=== PATIENT | female | born 1975 | race Caucasian/White ===

== ENCOUNTER 2018-03-08 15:14 | Emergency (ER) | payer SELFPAY, BC, OTHER ==
[2018-03-08 16:42] LABS: BASO % 0.3 % (0.0-1.0); EOS # 0.1 10^3/uL (0.0-0.50); EOS % 1.2 % (0.0-3.0); HEMATOCRIT 37.3 % (36.0-47.0); HEMOGLOBIN 12.7 g/dl (12.0-15.5); IMMATURE GRANULOCYTE % 0.2 % (0-3.0); LYMPH # 2.5 10^3/uL (1.5-4.5); MEAN CORPUSCULAR HEMOGLOBIN 30.6 pg (27.0-33.0); MEAN CORPUSCULAR VOLUME 89.9 fl (80.0-96.0); MONO # 0.6 10^3/uL (0.0-0.8); MONO % 7.4 % (0.0-5.0); NEUTROPHILS # 5.4 10^3/uL (1.8-7.7); NEUTROPHILS % 61.9 % (36.0-66.0); PLATELET COUNT, AUTOMATED 355 10^3/uL (150-450); RED BLOOD COUNT 4.15 10^6/uL (4.00-5.40); RED CELL DISTRIBUTION WIDTH 12.1 % (11.5-14.5); WHITE BLOOD COUNT 8.7 10^3/uL (4.0-10.0)
[2018-03-08] MEDS: LABETALOL HCL 100 MG/20 ML VIAL IV (16:52)
[2018-03-08 17:04] LABS: CONTROL LINE HCG INT CTR LINE PRESENT; HCG, SERUM QUALITATIVE NEGATIVE (NEGATIVE)
[2018-03-08 17:45] LABS: ALT/SGPT 58 U/L (12-78); ANION GAP 11 MEQ/L (8-16); AST/SGOT 29 U/L (7-37); BLOOD UREA NITROGEN 13 MG/DL (7-18); CALCIUM LEVEL 8.8 MG/DL (8.5-10.1); CARBON DIOXIDE LEVEL 25 MEQ/L (21-32); CHLORIDE LEVEL 104 MEQ/L (98-107); CREATININE FOR GFR 0.58 MG/DL (0.55-1.30); GLOMERULAR FILTRATION RATE > 60.0 (>58); GLUCOSE, FASTING 139 MG/DL (70-100); POTASSIUM SERUM 3.6 MEQ/L (3.5-5.1); SODIUM LEVEL 140 MEQ/L (136-145)
[2018-03-08 17:46] LABS: ALBUMIN 3.8 GM/DL (3.2-5.2); ALBUMIN/GLOBULIN RATIO 1.06 (1.00-1.93); ALKALINE PHOSPHATASE 67 U/L (45-117); BILIRUBIN,DIRECT < 0.1 MG/DL (0.0-0.2); BILIRUBIN,TOTAL 0.3 MG/DL (0.2-1.0); CK-MB VALUE MASS < 1.0 NG/ML (<3.6); CPK CREATINE PHOSPHOKINASE 88 U/L (26-192); TOTAL PROTEIN 7.4 GM/DL (6.4-8.2); TROPONIN I < 0.02 NG/ML (< 0.10)
[2018-03-08] MEDS: ACETAMINOPHEN TAB 650MG DOSE (2X325MG) PO (18:30)
[2018-03-08] MEDS: LOSARTAN 50 MG TAB PO (19:00)
[2018-03-08] MEDS: amLODIPine 5 MG TAB PO (19:01)
[2018-03-08 20:42] LABS: MB/CK RELATIVE INDEX 1.14 (< OR =4)
== END 2018-03-08 19:58 | disposition home or self-care (01) ==
LOC: M ED 15:14
DX: I10 Essential (primary) hypertension (principal); A08.4 Viral intestinal infection, unspecified
CPT/HCPCS: 71045

== ENCOUNTER 2020-04-24 09:36 | Emergency (ER) | payer OTHER ==
[~2020-04-24] VITALS: Ht 154.9 cm; Wt 108.8 kg
[~2020-04-24 09:36] MED LIST: AMLO1TAB24; FURO20TA2; LOSA100T50; METO1TAB7; ONDA4TAB6 PO; SPIR100T3
[2020-04-24] MEDS ORDERED: ATOR40TA75 (09:47)
[2020-04-24] MEDS: NITROGLYCERIN 0.4 MG SUBL TABLET SL PRN ×3 (10:28→10:46)
[2020-04-24] MEDS ORDERED: ASPIRIN 81 MG CHEW TABLET PO ONE (10:30)
[2020-04-24 10:34] LABS: INR 0.9; PROTHROMBIN TIME 12.3 SECONDS (12.5-14.3)
[2020-04-24 10:37] LABS: BASO # 0.1 10^3/uL (0.0-0.2); BASO % 0.7 % (0.0-1.0); EOS # 0.2 10^3/uL (0.0-0.5); EOS % 3.2 % (0.0-3.0); HEMATOCRIT 41.3 % (36.0-47.0); HEMOGLOBIN 13.1 g/dl (12.0-15.5); LYMPH # 2.2 10^3/uL (1.5-5.0); LYMPH % 32.3 % (24.0-44.0); MEAN CORPUSCULAR HGB CONC 31.7 g/dl (32.0-36.5); MEAN CORPUSCULAR VOLUME 94.5 fl (80.0-96.0); MONO # 0.6 10^3/uL (0.0-0.8); MONO % 8.1 % (0.0-5.0); NEUTROPHILS # 3.9 10^3/uL (1.5-8.5); NEUTROPHILS % 55.4 % (36.0-66.0); PLATELET COUNT, AUTOMATED 351 10^3/uL (150-450); RED BLOOD COUNT 4.37 10^6/uL (4.00-5.40); WHITE BLOOD COUNT 6.9 10^3/uL (4.0-10.0)
--- NOTE | 2020-04-24 10:37 | REP ---
INDICATION: CHEST PAIN. COMPARISON: Portable chest dated 03/08/2018. TECHNIQUE: Single AP view of the chest performed portably with the patient upright. FINDINGS: The lung rutledge are clear. Cardiac size is normal. The kishan, mediastinum and skeletal structures are unremarkable. IMPRESSION: Essentially negative portable chest There is no interval change. <Electronically signed by Viktor Tran > 04/24/20 [id number]
[2020-04-24 10:50] LABS: ALBUMIN 3.7 GM/DL (3.2-5.2); ALT/SGPT 35 U/L (12-78); BILIRUBIN,DIRECT < 0.1 MG/DL (0.0-0.2); BILIRUBIN,TOTAL 0.3 MG/DL (0.2-1.0); BLOOD UREA NITROGEN 16 MG/DL (7-18); CALCIUM LEVEL 8.8 MG/DL (8.5-10.1); CARBON DIOXIDE LEVEL 28 MEQ/L (21-32); CHLORIDE LEVEL 104 MEQ/L (98-107); CK-MB VALUE MASS < 1.0 NG/ML (<3.6); CPK CREATINE PHOSPHOKINASE 72 U/L (26-192); CREATININE FOR GFR 0.62 MG/DL (0.55-1.30); GLOMERULAR FILTRATION RATE > 60.0 (>58); GLUCOSE, FASTING 113 MG/DL (70-100); LIPASE 99 U/L (73-393); MB/CK RELATIVE INDEX 1.39 (< OR =4); NT-PRO BNP 68 PG/ML (<125); SODIUM LEVEL 136 MEQ/L (136-145); TOTAL PROTEIN 7.4 GM/DL (6.4-8.2); TROPONIN I < 0.02 NG/ML (< 0.10)
[2020-04-24] MEDS ORDERED: ACETAMINOPHEN 500 MG TAB PO ONE (11:00)
[2020-04-24] MEDS ORDERED: ISOVUE-370 76% 100ML VIAL As Ordered ONE (12:49)
--- NOTE | 2020-04-24 13:28 | REP ---
INDICATION: CP. COMPARISON: None. TECHNIQUE: Contrast dose: 75 ML of Isovue [address] technique: Helical scanning is acquired and overlapping 1.5 mm and contiguous 3 mm axial images are reformatted. In addition, maximum intensity projection and multiplanar re-formation images are generated in sagittal and coronal imaging projections. FINDINGS: There is good opacification in the pulmonary arterial tree. There is no evidence of vessel cut off or filling defect to suggest pulmonary embolus. Homogeneous opacity is seen in the thoracic aorta. There is no evidence of aneurysm or dissection. Lung window settings demonstrate no evidence9 of infiltrate, atelectasis, or significant pulmonary nodule. There is no evidence of pleural or pericardial effusion. No hilar or mediastinal mass or adenopathy is observed. Incidental note is made of a normal variant in the great vessels in that the left vertebral artery is seen to take direct origin from the aortic arch. In the upper abdomen, moderate diffuse fatty infiltration of the liver is noted. There is a small accessory splenule in the left upper quadrant. Normal adrenal glands. The visualized upper abdominal structures are otherwise unremarkable. Bone window settings show no bony destructive lesion.. IMPRESSION: No CT evidence of pulmonary embolus. Moderate diffuse fatty infiltration of the liver. Otherwise negative. <Electronically signed by Herve Melara > 04/24/20 [id number]
--- NOTE | 2020-04-24 15:31 | REP ---
INDICATION: swelling. COMPARISON: NONE. TECHNIQUE: Helical scanning is acquired and 2 mm axial images re-formatted. Coronal MPR images are generated and reviewed. FINDINGS: No intraorbital abnormality is seen. The visualized intracranial structures are unremarkable. No mandibular fracture or bony destructive lesion is seen. No condylar neck fracture is seen. No skull base or upper cervical spine abnormality is observed. There is leftward deviation of the nasal septum with a large septal beak. 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 The lateral wall of the nasal airway on the left bows laterally into the opacified left maxillary sinus. There is some chronic of maxillary sinus wall thickening on the left and these changes are compatible with chronic left maxillary sinusitis. There are mucous retention cysts in the ethmoid air cells bilaterally, 2 on the right and 1 on the left. There is a mucous retention cyst in the right sphenoid sinus measuring 18 mm. No nasal polyp is appreciated. Orbital margins are intact. The right ostiomeatal complex is patent. Nasal ethmoid recesses are patent. The left OMC is obscured by mucosal thickening and the lateral bowing of the nasal cavity wall. IMPRESSION: Leftward deviation of the nasal septum with a fairly large septal beak. Chronic sinusitis left maxillary sinus and mucosal retention cysts in the ethmoids and right sphenoid sinus. No traumatic abnormality noted. Otherwise negative. <Electronically signed by Herve Melara > 04/24/20 [id number]
[2020-04-24] MEDS ORDERED: CHLO125TA PO (16:01)
[2020-04-24] MEDS ORDERED: CHLORTHALIDONE 12.5MG PER 1/2 TABLET PO ONE (16:15)
[2020-04-24] MEDS ORDERED: amLODIPine 5 MG TAB PO ONE (16:15)
[2020-04-24 16:18] VITALS: BP 203/93
[2020-04-24] MEDS: PERCOCET 5MG/325MG TAB PO ONE ×2 (16:18→16:22)
[2020-04-24] MEDS ORDERED: KETOROLAC 30 MG/ML 1ML VIAL IV ONE (16:30)
[2020-04-24 17:42] LABS: CK-MB VALUE MASS < 1.0 NG/ML (<3.6); CPK CREATINE PHOSPHOKINASE 58 U/L (26-192); MB/CK RELATIVE INDEX 1.72 (< OR =4); TROPONIN I < 0.02 NG/ML (< 0.10)
[2020-04-24] MEDS ORDERED: AUGM875T28 PO (17:52)
[2020-04-24 18:10] VITALS: BP 177/100
--- NOTE | 2020-04-24 20:57 | ECGEPIP ---
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
--- NOTE | 2020-04-24 21:00 | ECGEPIP ---
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
== END 2020-04-24 18:18 | disposition home or self-care (01) ==
LOC: M ED 09:36
DX: I10 Essential (primary) hypertension (principal); R07.89 Other chest pain; J32.9 Chronic sinusitis, unspecified; J34.1 Cyst and mucocele of nose and nasal sinus; K76.0 Fatty (change of) liver, not elsewhere classified; R22.0 Localized swelling, mass and lump, head; R20.2 Paresthesia of skin; Z82.49 Family history of ischemic heart disease and other diseases of the circulatory system; Z91.018 Allergy to other foods; Z79.899 Other long term (current) drug therapy
CPT/HCPCS: 36415; 70486; 71045; 71275; 80048; 80076; 82550; 82553; 83690; 83880; 84443; 84484; 85025; 85610; 93005; 93041; 94760; 96374; 99285; J1885; Q9967

== ENCOUNTER → 2020-07-12 | Outpatient (REF) ==
[~2020-07-12] MED LIST changes: +ATOR40TA75; +AUGM875T28 PO; +CHLO125TA PO
== END ==
LOC: M LABSMTC 13:50
PROVIDERS: ATTEND Pediatrics
DX: Z11.52 Encounter for screening for COVID-19 (principal)

== ENCOUNTER 2021-02-10 15:38 | Emergency (ER) | payer OTHER ==
[~2021-02-10] VITALS: Ht 154.9 cm; Wt 104.1 kg
[2021-02-10 15:38] VITALS: BP 184/91
--- NOTE | 2021-02-11 05:01 | ECGEPIP ---
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
== END 2021-02-10 19:46 | disposition left against medical advice (07) ==
LOC: M ED 15:38
DX: Z53.21 Procedure and treatment not carried out due to patient leaving prior to being seen by health care provider (principal)

== ENCOUNTER → 2021-11-09 | Outpatient (REF) ==
[~2021-11-09] MED LIST changes: +LOSA100T45; -LOSA100T50
== END ==
LOC: M LABSMTC 10:04
PROVIDERS: ATTEND Family Medicine
DX: Z11.52 Encounter for screening for COVID-19 (principal)

== ENCOUNTER → 2022-01-27 | Outpatient (REF) | LOC: M EMP 15:34 | PROVIDERS: ATTEND Family Medicine | DX: Z11.52 Encounter for screening for COVID-19 (principal) ==

== ENCOUNTER → 2022-07-27 | Outpatient (REF) ==
[2022-07-27 14:59] LABS: RSV AMPLIFICATION NEGATIVE (NEGATIVE)
== END ==
LOC: M EMP 12:34
PROVIDERS: ATTEND Family Medicine
DX: Z11.52 Encounter for screening for COVID-19 (principal)

== ENCOUNTER 2022-08-17 08:22 | Observation (INO) | payer BC, OTHER ==
[~2022-08-17] VITALS: Ht 154.9 cm; Wt 109.2 kg
[2022-08-17] VITALS (7 sets, daily range): BP systolic 107–178; BP diastolic 56–120
[~2022-08-17 08:22] MED LIST changes: -AMLO1TAB24; +AMLO1TAB24 PO; -LOSA100T45; +LOSA100T45 PO; -METO1TAB7; +METO1TAB7 PO; -SPIR100T3; +SPIR100T3 PO
[2022-08-17] MEDS ORDERED: ISOVUE-370 76% 100ML VIAL As Ordered ONE (08:43)
[2022-08-17] MEDS ORDERED: SPIRONOLACTONE 50 MG TAB PO SCH (09:00)
[2022-08-17 09:03] LABS: BASO % 0.5 % (0.0-1.0); EOS # 0.1 10^3/uL (0.0-0.5); EOS % 1.8 % (0.0-3.0); HEMATOCRIT 42.8 % (36.0-47.0); HEMOGLOBIN 14.3 g/dl (12.0-15.5); LYMPH # 2.6 10^3/uL (1.5-5.0); LYMPH % 33.3 % (24.0-44.0); MEAN CORPUSCULAR HEMOGLOBIN 30.4 pg (27.0-33.0); MEAN CORPUSCULAR HGB CONC 33.4 g/dl (32.0-36.5); MEAN CORPUSCULAR VOLUME 91.1 fl (80.0-96.0); MONO # 0.6 10^3/uL (0.0-0.8); MONO % 7.7 % (2.0-8.0); NEUTROPHILS # 4.3 10^3/uL (1.5-8.5); NEUTROPHILS % 56.4 % (36.0-66.0); PLATELET COUNT, AUTOMATED 390 10^3/uL (150-450); WHITE BLOOD COUNT 7.7 10^3/uL (4.0-10.0)
[2022-08-17 09:26] LABS: INR 0.91; PROTHROMBIN TIME 12.4 SECONDS (12.5-14.5)
[2022-08-17 09:27] LABS: PARTIAL THROMBOPLASTIN TIME 25.2 SECONDS (24.8-34.2)
[2022-08-17 09:29] LABS: CK-MB VALUE MASS < 1.0 NG/ML (<3.6); CPK CREATINE PHOSPHOKINASE 55 U/L (34-145); MB/CK RELATIVE INDEX 1.81 (< OR =4)
[2022-08-17 09:35] LABS: HCG, SERUM QUALITATIVE NEGATIVE (NEGATIVE)
[2022-08-17] MEDS ORDERED: IBUP200C28 PO (09:53)
[2022-08-17] MEDS ORDERED: HOME MED LIST COMPLETE! XX SCH (09:55)
[2022-08-17] MEDS ORDERED: LABETALOL 100MG/20ML VIAL IV STA ×2 (09:59→13:29)
[2022-08-17] MEDS: METOPROLOL SUCC (TopROL XL) 50MG **XL** TAB PO SCH (11:20)
[2022-08-17 11:40] LABS: RSV AMPLIFICATION NEGATIVE (NEGATIVE)
[2022-08-17] MEDS ORDERED: hydrALAZINE 20MG/ML 1ML VIAL IV SCH (12:30)
[2022-08-17] MEDS ORDERED: ACETAMINOPHEN TAB 650MG DOSE (2X325MG) PO PRN (13:35)
[2022-08-17] MEDS ORDERED: METOCLOPRAMIDE INJ 10MG/2ML VIAL IV PRN (13:35)
[2022-08-17] MEDS ORDERED: METOCLOPRAMIDE INJ 10MG/2ML VIAL IV ONE (13:35)
[2022-08-17] MEDS ORDERED: FURO20TA2 PO (14:25)
[2022-08-17 16:17] LABS: BLOOD UREA NITROGEN 14 MG/DL (9-23); CALCIUM LEVEL 8.7 MG/DL (8.5-10.1); CARBON DIOXIDE LEVEL 25 MMOL/L (20-31); CHLORIDE LEVEL 101 MMOL/L (98-107); CREATININE FOR GFR 0.49 MG/DL (0.55-1.30); GLOMERULAR FILTRATION RATE > 60.0 (>58); GLUCOSE, FASTING 174 MG/DL (60-100); POTASSIUM SERUM 3.4 MMOL/L (3.5-5.1); SODIUM LEVEL 134 MMOL/L (136-145)
[2022-08-17] MEDS: LOSARTAN 50MG TABLET PO SCH (16:30)
[2022-08-17] MEDS: cloNIDine 0.1MG TABLET PO SCH ×3 (16:30→22:07)
[2022-08-17] MEDS: ISOSORBIDE DIN. (ISORDIL) 20 MG TAB PO SCH (17:30)
[2022-08-17] MEDS ORDERED: LOSARTAN 50MG TABLET PO SCH (21:00)
[2022-08-17] MEDS ORDERED: amLODIPine 5 MG TAB PO SCH (21:00)
[2022-08-18] VITALS: BP 111/55
[2022-08-18] MEDS: cloNIDine 0.1MG TABLET PO SCH ×2 (03:00→06:03)
[2022-08-18 04:00] VITALS: BP 134/64
[2022-08-18 06:00] LABS: BLOOD UREA NITROGEN 18 MG/DL (9-23); CALCIUM LEVEL 9.1 MG/DL (8.5-10.1); CARBON DIOXIDE LEVEL 24 MMOL/L (20-31); CHLORIDE LEVEL 102 MMOL/L (98-107); CREATININE FOR GFR 0.48 MG/DL (0.55-1.30); GLOMERULAR FILTRATION RATE > 60.0 (>58); GLUCOSE, FASTING 147 MG/DL (60-100); POTASSIUM SERUM 3.7 MMOL/L (3.5-5.1); SODIUM LEVEL 136 MMOL/L (136-145)
[2022-08-18] MEDS: ISOSORBIDE DIN. (ISORDIL) 20 MG TAB PO SCH ×2 (06:00)
[2022-08-18 07:49] VITALS: BP 148/72
[2022-08-18 08:00] VITALS: BP 104/64
[2022-08-18 08:50] VITALS: BP 148/72
[2022-08-18] MEDS: METOPROLOL SUCC (TopROL XL) 50MG **XL** TAB PO SCH (08:50)
[2022-08-18] MEDS: LOSARTAN 50MG TABLET PO SCH (08:51)
[2022-08-18] MEDS ORDERED: SPIRONOLACTONE 25 MG TAB PO SCH (09:00)
[2022-08-18] MEDS ORDERED: FURO20TA2 PO (09:27)
[2022-08-18] MEDS ORDERED: SPIR50TA4 PO (09:27)
[2022-08-18] MEDS ORDERED: AMLO1TAB25 PO (09:27)
[2022-08-18] MEDS ORDERED: METO1TAB7 PO (09:27)
[2022-08-18] MEDS ORDERED: LOSA100T45 PO (09:27)
== END 2022-08-18 10:35 | disposition home or self-care (01) ==
LOC: M ED 08:22 → M ED INP 10:50 → ENRESERV 11:41 → M PCU 12:04
PROVIDERS: ADMIT General Practice; ATTEND General Practice
DX: I16.0 Hypertensive urgency (principal); I10 Essential (primary) hypertension; I70.1 Atherosclerosis of renal artery; I77.3 Arterial fibromuscular dysplasia; Z79.899 Other long term (current) drug therapy; Z91.018 Allergy to other foods; Z88.8 Allergy status to other drugs, medicaments and biological substances; E66.01 Morbid (severe) obesity due to excess calories
CPT/HCPCS: 36415; 70450; 70496; 70498; 70551; 71045; 80047; 80048; 82088; 82550; 82553; 84244; 84484; 84703; 85025; 85610; 85730; 86850; 86900; 86901; 87631; 93005; 93041; 94760; 96374; 96375; 96376; 99285; J0360; Q9967

== ENCOUNTER 2025-03-10 14:58 | Emergency (ER) | payer BC ==
[~2025-03-10] VITALS: Ht 154.9 cm; Wt 113.0 kg
[~2025-03-10 14:58] MED LIST changes: +AMLO1TAB25 PO; +FURO20TA2 PO; +IBUP200C28 PO; -LOSA100T45 PO; +LOSA100T46 PO; +ONDA-282 PO; -ONDA4TAB6 PO; +SPIR50TA4 PO
[2025-03-10 16:03] LABS: KETONE, URINE AUTO RFX NEGATIVE (NEGATIVE); LEUKOCYTE ESTERASE UR AUTO RFX NEGATIVE (NEGATIVE); MUCUS, URINE RFX SMALL (NEGATIVE); NITRITE, URINE AUTO RFX POSITIVE (NEGATIVE); RBC, URINE AUTO RFX 0 /HPF (0-3); SQUAM EPITHELIAL CELL UR AURFX 8 /HPF (0-6); WBC, URINE AUTO RFX 3 /HPF (0-3)
[2025-03-10 16:06] LABS: BASO # 0.1 10^3/uL (0.0-0.2); BASO % 0.5 % (0.0-1.0); EOS # 0.1 10^3/uL (0.0-0.5); EOS % 1.5 % (0.0-3.0); LYMPH # 3.1 10^3/uL (1.5-5.0); LYMPH % 32.9 % (24.0-44.0); MONO # 0.7 10^3/uL (0.0-0.8); MONO % 7.4 % (2.0-8.0); NEUTROPHILS # 5.4 10^3/uL (1.5-8.5); NEUTROPHILS % 57.3 % (36.0-66.0); PLATELET COUNT, AUTOMATED 354 10^3/uL (150-450)
[2025-03-10 16:33] LABS: CALCIUM LEVEL 9.5 MG/DL (8.5-10.1); CARBON DIOXIDE LEVEL 23 MMOL/L (20-31); CHLORIDE LEVEL 102 MMOL/L (98-107); CREATININE FOR GFR 0.49 MG/DL (0.55-1.30); GLOMERULAR FILTRATION RATE > 90.0 (>58); POTASSIUM SERUM 3.8 MMOL/L (3.5-5.1); SODIUM LEVEL 138 MMOL/L (136-145)
[2025-03-10] MEDS: ACETAMINOPHEN *IV* 1,000 MG in IV 1 EA IV ONE (16:45)
[2025-03-10 18:45] VITALS: BP 158/75; TEMP 98.9; O2SAT 96
== END 2025-03-10 18:55 | disposition home or self-care (01) ==
LOC: M ED 14:58
DX: R30.0 Dysuria (principal); M54.9 Dorsalgia, unspecified; F32.A Depression, unspecified; I10 Essential (primary) hypertension; Z87.442 Personal history of urinary calculi; Z87.448 Personal history of other diseases of urinary system; Z79.899 Other long term (current) drug therapy; Z88.8 Allergy status to other drugs, medicaments and biological substances; Z91.018 Allergy to other foods
CPT/HCPCS: 74176; 80048; 81001; 85025; 87088; 87186; 96374; 99284; J0131